=== PATIENT | female | born 1965 | race Hispanic/Latino ===

== ENCOUNTER 2019-01-08 12:22 | Day surgery (SDC) | payer BC ==
[~2019-01-08 12:22] MED LIST: EPINEPHrine 0.3 MG, Dextrose 50% 3 ML in Ophthalmic Irrigation Solution 500 ML IVP SCH
[2019-01-08] MEDS ORDERED: Phenylephrine 2.5% Ophth Soln 5 ML BOT ONE (12:39)
[2019-01-08] MEDS ORDERED: Cyclopentolate 1% Opth Drop 2 ML BOT ONE (12:39)
[2019-01-08] MEDS ORDERED: Fentanyl 100 MCG/2 ML VIAL ONE (12:51)
[2019-01-08] MEDS ORDERED: Midazolam HCl 2 mg/2 ml Vial ONE (12:51)
--- NOTE | 2019-01-08 21:21 | OP ---
DATE OF PROCEDURE: 01/08/2019 PREOPERATIVE DIAGNOSIS: Tractional retinal detachment, left eye. POSTOPERATIVE DIAGNOSIS: Tractional retinal detachment, left eye. PROCEDURE PERFORMED: Pars plana vitrectomy, tractional retinal detachment repair of left eye. ANESTHESIA: Local with monitored anesthesia care. PROCEDURE IN DETAIL: The patient was identified in the preoperative holding area. Appropriate informed consent for the planned surgical procedure on the left eye had been obtained. The patient was transported to the operative suite. Appropriate cardiopulmonary monitoring was established. Local anesthesia obtained using retrobulbar modified [place] Lint lid block using 50:50 mixture of 4% lidocaine and 0.75% bupivacaine. The patient was prepped and draped in usual sterile manner for ophthalmic surgery on left eye. Lid speculum was placed in the left eye. A 25-gauge trocar was placed in the conjunctiva and sclera superotemporally, inferotemporally, and supranasally. Infusion line was placed inferotemporally. Light pipe vitreous cutter inserted into the eye. Core vitrectomy was performed. Retraction was noted on the retinal surface. This was elevated using a forceps and a pick and carefully peeled from the retinal surface. retinal detachments were noted nasally, inferiorly, superiorly. Holes were noted directly, nasally, and inferiorly. exchange was performed, and fluid was drained from the subretinal space. Panretinal photocoagulation was placed on non-macular areas of the retina with special attention to the areas of retinal detachment. 28% sulfur hexafluoride gas was infused into the eye. Trocars were removed. The eye was noted to retain pressure well. Retrobulbar Kenalog and subconjunctival Ancef were placed. Atropine antibiotic ointment was placed. The eye was patched and shielded. The patient was taken to the postoperative recovery unit in good condition having suffered no immediate perioperative complications. The patient was instructed to keep patch and shield on, avoid lifting or bending. Followup appointment with Dr. Grider. Job ID: [id number]
== END 2019-01-08 16:25 | disposition home or self-care (01) ==
LOC: SDC 12:22
PROVIDERS: ATTEND Ophthalmology Retina Specialist
DX: H33.42 Traction detachment of retina, left eye (principal); Z88.0 Allergy status to penicillin; Z88.5 Allergy status to narcotic agent
CPT/HCPCS: 36416; 67025; J0171; J2250; J3010